=== PATIENT | female | born 1940 | race Hispanic/Latino ===

== ENCOUNTER → 2018-01-23 | Outpatient (CLI) | payer OTHER ==
[~2018-01-23] MED LIST: ALEN70TA47 PO; LISI-617 PO; MAGN400C PO; MULT-1114 PO; OM-31CAP8 PO; SIMV20TA6 PO; biotin PO; citrical PO
== END | disposition home or self-care (01) ==
LOC: RAH 10:57
PROVIDERS: ATTEND Family Medicine
DX: R92.8 Other abnormal and inconclusive findings on diagnostic imaging of breast (principal); Z85.3 Personal history of malignant neoplasm of breast
CPT/HCPCS: 77065

== ENCOUNTER → 2019-02-05 | Outpatient (CLI) | payer OTHER ==
[~2019-02-05] MED LIST changes: +ALEN70TA10 PO; -ALEN70TA47 PO
== END | disposition home or self-care (01) ==
LOC: RAH 09:27
PROVIDERS: ATTEND Internal Medicine Medical Oncology
DX: C50.511 Malignant neoplasm of lower-outer quadrant of right female breast (principal)
CPT/HCPCS: 77065

== ENCOUNTER → 2020-03-10 | Outpatient (CLI) | payer OTHER ==
[~2020-03-10] MED LIST changes: +SIMV-43 PO; -SIMV20TA6 PO
== END | disposition home or self-care (01) ==
LOC: RAH 14:23
PROVIDERS: ATTEND Internal Medicine Medical Oncology
DX: C50.919 Malignant neoplasm of unspecified site of unspecified female breast (principal); Z85.3 Personal history of malignant neoplasm of breast
CPT/HCPCS: 77065

== ENCOUNTER → 2021-03-11 | Outpatient (CLI) | payer OTHER ==
[~2021-03-11] MED LIST changes: -ALEN70TA10 PO; +ALEN70TA80 PO; -LISI-617 PO; +LISI-809 PO
== END | disposition home or self-care (01) ==
LOC: RAH 09:01
PROVIDERS: ATTEND Internal Medicine Medical Oncology
DX: R91.8 Other nonspecific abnormal finding of lung field (principal); Z85.3 Personal history of malignant neoplasm of breast; Z90.11 Acquired absence of right breast and nipple
CPT/HCPCS: 77065

== ENCOUNTER → 2022-04-05 | Outpatient (CLI) | payer OTHER ==
[~2022-04-05] MED LIST changes: -LISI-809 PO; +LISI5TAB21 PO
== END | disposition home or self-care (01) ==
LOC: RAH 12:43
PROVIDERS: ATTEND Internal Medicine Medical Oncology
DX: C50.511 Malignant neoplasm of lower-outer quadrant of right female breast (principal)
CPT/HCPCS: 77065

== ENCOUNTER → 2023-04-17 | Outpatient (CLI) | payer OTHER | END | disposition home or self-care (01) | LOC: RAH 13:27 | PROVIDERS: ATTEND Internal Medicine Medical Oncology | DX: C50.511 Malignant neoplasm of lower-outer quadrant of right female breast (principal) | CPT/HCPCS: 77065 ==

== ENCOUNTER → 2024-04-17 | Outpatient (CLI) | payer OTHER | END | disposition home or self-care (01) | LOC: RAH 12:43 | PROVIDERS: ATTEND Family Medicine | DX: C50.512 Malignant neoplasm of lower-outer quadrant of left female breast (principal); N64.89 Other specified disorders of breast; R92.332 Mammographic heterogeneous density, left breast | CPT/HCPCS: 77065 ==